=== PATIENT | female | born 1945 | race Caucasian/White ===

== ENCOUNTER 2018-11-22 07:10 | Day surgery (SDC) | payer MEDICARE ==
[2018-11-22] VITALS (9 sets, daily range): BP systolic 112–133; BP diastolic 61–76
[~2018-11-22] VITALS: Ht 167.6 cm; Wt 72.0 kg
[~2018-11-22 07:10] MED LIST: atropine 0.1mg/ml 10ml syringe ONE
[2018-11-22] MEDS ORDERED: normal saline 1,000 ML IV SCH (07:45)
[2018-11-22] MEDS ORDERED: diphenhydrAMINE 25mg capsule PO PRN (07:45)
[2018-11-22] MEDS ORDERED: sodium bicarbonate (8.4%) inj. 150 ML in dextrose 5%-water 1,000 ML IV ONE (07:45)
[2018-11-22] MEDS ORDERED: LORA10TA65 PO (08:11)
[2018-11-22] MEDS ORDERED: MULT1TAB74 PO (08:11)
[2018-11-22] MEDS ORDERED: ASPI81TA52 PO (08:11)
[2018-11-22] MEDS ORDERED: NITR0.4T48 SL (08:11)
[2018-11-22 08:30] LABS: BASOPHILS % (AUTO) 1.2 % (0-1); EOSINOPHILS # (AUTO) 0.1 X10'3 (0-0.9); EOSINOPHILS % (AUTO) 1.5 % (0-6); HEMATOCRIT 37.5 % (35.0-45.0); HEMOGLOBIN 12.8 g/dl (12.0-16.0); LYMPHOCYTES # (AUTO) 1.2 X10'3 (1.1-4.8); LYMPHOCYTES % (AUTO) 33.6 % (21-51); MEAN CORPUSCULAR HEMOGLOBIN 33.4 PG (27.0-31.0); MEAN CORPUSCULAR HGB CONC 34.1 g/dL (33.0-36.5); MEAN CORPUSCULAR VOLUME 97.9 FL (78-98); MEAN PLATELET VOLUME 7.4 FL (7.4-10.4); MONOCYTES # (AUTO) 0.3 X10'3 (0-0.9); MONOCYTES % (AUTO) 9.5 % (2-12); NEUTROPHILS # (AUTO) 1.9 X10'3 (1.8-7.7); NEUTROPHILS % (AUTO) 54.2 % (42-75); PLATELET COUNT 208 X10'3 (140-440); RED BLOOD COUNT 3.83 X10'6 (4.20-5.60); RED CELL DISTRIBUTION WIDTH 13.2 % (11.5-14.5); WHITE BLOOD COUNT 3.6 X10'3 (4.5-11.0)
[2018-11-22 08:43] LABS: ALBUMIN 3.6 G/DL (3.4-5.0); ANION GAP 8 (8-16); BLOOD UREA NITROGEN 18 MG/DL (7-18); CALCIUM 9.1 MG/DL (8.5-10.1); CHLORIDE 108 MMOL/L (99-107); CREATININE 0.45 MG/DL (0.40-0.90); GLUCOSE 88 MG/DL (70-104); MAGNESIUM 2.1 MG/DL (1.5-2.4); SODIUM 142 MMOL/L (135-145); TOTAL CARBON DIOXIDE 26.1 MMOL/L (24-32); eGFR > 90 ML/MIN
[2018-11-22] MEDS ORDERED: fentaNYL/PF 50MCG/1 ML 2ML syringe ONE (08:52)
[2018-11-22] MEDS ORDERED: iohexol 350MG/ML 100ml bottle IV ONE (08:52)
[2018-11-22] MEDS ORDERED: iohexol 350 MG/ML 50ML vial IV ONE (08:52)
[2018-11-22] MEDS ORDERED: midazolam 2 mg/2 ml injection ONE (08:52)
[2018-11-22] MEDS ORDERED: LIDOcaine 1% (10mg/ml)w/preservative injection 20ml MDV ONE (08:52)
[2018-11-22] MEDS ORDERED: hydrocortisone sod succ/PF 100mg/2ml inj. ONE (09:29)
== END 2018-11-22 13:30 | disposition home or self-care (01) ==
LOC: SSTAY O 07:10
PROVIDERS: ATTEND Internal Medicine Cardiovascular Disease
DX: R07.89 Other chest pain (principal); R94.39 Abnormal result of other cardiovascular function study
CPT/HCPCS: 36415; 80048; 83735; 85025; 85610; 93005; 93458; 99152; 99153; A6257; J0461; J1644; J1720; J2001; J2250; J3010; J7030; Q0163; Q9967; A4620; C1760; C1769; C1894